=== PATIENT | female | born 1995 | race American Indian/Alaskan Native ===

== ENCOUNTER 2019-11-18 19:30 | Emergency (ER) | payer SELFPAY ==
[2019-11-18 21:39] VITALS: BP 104/53
[2019-11-18] MEDS ORDERED: METOCLOPRAMIDE 10 MG TAB PO ONE (22:11)
[2019-11-18] MEDS ORDERED: BUTALB/ACETAMINOPHEN/CAFFEINE TAB PO ONE (22:11)
[2019-11-18] MEDS ORDERED: KETOROLAC 30 MG/1 ML INJ IM ONE (22:11)
--- NOTE | 2019-11-18 22:13 | Emergency Department Report ---
ED Headache HPI - General Chief Complaint: Headache Stated Complaint: SEVERE MIGRAINES W/BLACKOUTS Source: patient Exam Limitations: no limitations - History of Present Illness Initial Comments: Patient is a 24-year-old -Stateless female with a history of migraine headaches, asthma and extensive chronic sinusitis presents to the ED with acute onset persistent severe right frontal and temporal headache with intermittent blurry vision and nausea for the last 2 months, worse in the last 1 week. P atient also states that she has had 2 episodes of syncope last of which was 5 days ago. Patient states that she has been taking decongestants and other pain medications with no relief. Patient states that the only medicine that previously helped her was Excedrin migraine headaches medicine but she was warned by her mother to avoid that medication. Patient states that in the last 2 days, the headache has been persistent, severe with worsening blurriness and that the pain is mainly more severe on the right retro-orbital area and right temporal area. Patient denies vomiting, fever, chills, chest pain, shortness of breath, palpitations, fever, chills, cough, nasal and sinus congestion, sore throat, loss of consciousness or traumatic injury and fall. Timing/Duration: constant, waxing and waning, other (2 months duration) Quality: severe, constant, pressure, sharp, throbbing Head Injury Location: temporal (right), other (right retro-orbital) Recent Head Trauma: chronic headaches Modifying Factors: improves with: medication Associated Symptoms: denies symptoms, facial pain, nausea/vomiting, vision changes, other (Syncope). denies: confusion, fatigue, fever/chills, flushing, loss of consciousness, nasal congestion, nasal drainage, numbness in legs/feet, seizures, sinus infection, stiff neck Allergies/Adverse Reactions: Allergies No Known Allergies Allergy (Unverified 11/18/19 19:36) Home Medications: Ambulatory Orders Amoxicillin/Potassium Clav [Augmentin 875-125 Tablet] 1 each PO Q12H #20 tablet 11/19/19 Butalb/Acetamin/Caff 50-325-40 [Fioricet 50-325-40] 1 - 2 tab PO Q6HR PRN #15 tab 11/19/19 Ketorolac [Toradol] 10 mg PO Q8H PRN #20 tablet 11/19/19 Ondansetron [Zofran Odt] 4 mg PO Q6HR PRN #20 tab.rapdis 11/19/19 predniSONE [Deltasone] 40 mg PO QDAY #10 tab 11/19/19 ED Review of Systems ROS: Stated complaint: SEVERE MIGRAINES W/BLACKOUTS Other details as noted in HPI Constitutional: denies: chills, fever Eyes: other (Blurry vision). denies: eye pain, eye discharge, vision change ENT: other (Frontal sinus pressure and headache). denies: ear pain, throat pain Respiratory: denies: cough, shortness of breath, wheezing Cardiovascular: syncope. denies: chest pain, palpitations Endocrine: no symptoms reported Gastrointestinal: nausea. denies: abdominal pain, diarrhea Genitourinary: denies: urgency, dysuria, discharge Musculoskeletal: denies: back pain, joint swelling, arthralgia Skin: denies: rash, lesions Neurological: other (Lightheadedness). denies: headache, weakness, paresthesias Psychiatric: denies: anxiety, depression Hematological/Lymphatic: denies: easy bleeding, easy bruising ED Past Medical Hx - Past Medical History Previous Medical History?: Yes Hx Headaches / Migraines: Yes Hx Asthma: Yes - Surgical History Past Surgical History?: No - Social History Smoking Status: Never Smoker Substance Use Type: None - Medications Home Medications: Home Medications Medication Instructions Recorded Confirmed Last Taken Type Amoxicillin/Potassium Clav 1 each PO Q12H #20 tablet 11/19/19 Unknown Rx [Augmentin 875-125 Tablet] Butalb/Acetamin/Caff 50-325-40 1 - 2 tab PO Q6HR PRN #15 tab 11/19/19 Unknown Rx [Fioricet 50-325-40] Ketorolac [Toradol] 10 mg PO Q8H PRN #20 tablet 11/19/19 Unknown Rx Ondansetron [Zofran Odt] 4 mg PO Q6HR PRN #20 tab.rapdis 11/19/19 Unknown Rx predniSONE [Deltasone] 40 mg PO QDAY #10 tab 11/19/19 Unknown Rx ED Physical Exam - General Limitations: No Limitations General appearance: alert, in no apparent distress - Head Head exam: Present: atraumatic, normocephalic, normal inspection - Eye Eye exam: Present: normal appearance, PERRL, EOMI Pupils: Present: normal accommodation - ENT ENT exam: Present: normal orophraynx, mucous membranes moist, TM's normal bilaterally, normal external ear exam, other (Palpable frontal and maxillary sinus tenderness; grossly congested nasal passages) - Neck Neck exam: Present: normal inspection, full ROM - Respiratory Respiratory exam: Present: normal lung sounds bilaterally. Absent: respiratory distress, wheezes, rales, chest wall tenderness, accessory muscle use, decreased breath sounds, prolonged expiratory - Cardiovascular Cardiovascular Exam: Present: regular rate, normal rhythm, normal heart sounds. Absent: systolic murmur, diastolic murmur, rubs, gallop - GI/Abdominal GI/Abdominal exam: Present: soft, normal bowel sounds. Absent: tenderness, guarding, rebound, hyperactive bowel sounds, hypoactive bowel sounds - Extremities Exam Extremities exam: Present: normal inspection, full ROM, normal capillary refill - Back Exam Back exam: Present: normal inspection, full ROM. Absent: tenderness, CVA tenderness (R), CVA tenderness (L), muscle spasm, paraspinal tenderness, vertebral tenderness - Neurological Exam Neurological exam: Present: alert, oriented X3, CN II-XII intact, normal gait, reflexes normal - Psychiatric Psychiatric exam: Present: normal affect, normal mood - Skin Skin exam: Present: warm, dry, intact, normal color. Absent: rash ED Course Vital Signs 11/18/19 19:37 Temperature 97.6 F Pulse Rate 84 Respiratory 17 Rate Blood Pressure 104/53 O2 Sat by Pulse 99 Oximetry ED Medical Decision Making - Lab Data Result diagrams: 11/18/19 22:38 11/18/19 22:38 - Radiology Data Radiology results: report reviewed, image reviewed Findings [facility] [address] [place] [address] Cat Scan Report Signed Patient: GEN MARCIAL#: [id number] : 1995 Acct:[id number] Age/Sex: 24 / F ADM Date: 11/18/19 Loc: ED Attending Dr: Ordering Physician: GREG WADE Date of Service: 11/18/19 Procedure(s): CT head/brain wo con Accession Number(s): [id number] cc: GREG WADE CT HEAD WITHOUT CONTRAST HISTORY: Severe headache x 1 month, syncopal episodes, photosensitivity COMPARISON: None TECHNIQUE: CT imaging of the head was performed in the axial, sagittal, and coronal projections and bone algorithm in axial projection in the soft tissue algorithm. All CT scans at this location are performed using CT dose reduction for ALARA by means of automated exposure control. CONTRAST: None. FINDINGS: Cerebral and Cerebellar Hemispheres: No evidence of mass or mass effect. No midline shift. No acute hemorrhage. No acute cortical infarction. No extra-axial fluid collection. Ventricles: Normal in size and configuration for age. Osseous Structures: No significant abnormality. Visualized Paranasal Sinuses: However, attention is treated to the paranasal sinuses which demonstrated extensive mucosal thickening involving the frontal sinuses and ethmoid sinuses, right sphenoid and maxillary sinuses with varying degrees of increased density on the right. Evidence of previous surgery right maxillary sinus Additional Findings: None IMPRESSION: 1. Extensive inflammatory changes-polyposis of the paranasal sinuses as noted NOTE: Acute infarct may not be visible by noncontrast CT. Signer Name: Gene López MD Signed: 11/18/2019 11:03 PM Workstation Name: [id number] Transcribed By: WG Dictated By: Gene López MD Electronically Authenticated By: Gene López MD Signed Date/Time: 11/18/192302 DD/ 48 TD/TT: - Medical Decision Making This is a 24-year-old -Stateless female with a history of migraine he adaches, asthma and extensive chronic sinusitis presents to the ED with acute onset persistent severe right frontal and temporal headache with intermittent blurry vision and nausea for the last 2 months, worse in the last 1 week. Patient also states that she has had 2 episodes of syncope last of which was 5 days ago. Patient states that she has been taking decongestants and other pain medications with no relief. Patient states that the only medicine that previously helped her was Excedrin migraine headaches medicine but she was warned by her mother to avoid that medication. Patient states that in the last 2 days, the headache has been persistent, severe with worsening blurriness and that the pain is mainly more severe on the right retro-orbital area and right temporal area. In the ED, patient is alert and oriented x3 and is not in distress but appears to be in significant pain. Patient was treated for pain in the ED and also given antiemetics. Lab test results were reviewed and are all nonactionable. Chest x-ray shows no acute cardiopulmonary abnormalities or pneumonitis. EKG shows normal sinus rhythm and no ST or T wave abnormalities. Head CT scan without contrast showed the paranasal sinuses which demonstrated extensive mucosal thickening involving the frontal sinuses and ethmoid sinuses, right sphenoid and maxillary sinuses with varying degrees of increased density on the right. There is evidence of previous surgery right maxillary sinus. Patient was also treated in the ED with Rocephin 1 g IV and Decadron 10 mg IV. On reevaluation, patient felt better and was discharged home on pain medications and oral antibiotics and was advised to follow-up with her primary care physician in 5 to 7 days for reevaluation. Patient was also advised to return to the ED immediately if symptoms get worse. - Differential Diagnosis Migraine; Sinus headache; sinusitis; Cluster headache; Vertigo Critical care attestation.: If time is entered above; I have spent that time in minutes in the direct care of this critically ill patient, excluding procedure time. ED Disposition Clinical Impression: Chronic frontoethmoidal sinusitis, Sinus headache Headache, chronic migraine without aura Qualifiers: Status migrainosus presence: without status migrainosus Intractability: not intractable Qualified Code(s): G43.709 - Chronic migraine without aura, not intractable, without status migrainosus Disposition: DC-01 TO HOME OR SELFCARE Is pt being admited?: No Does the pt Need Aspirin: No Condition: Stable Instructions: Acute Bacterial Rhinosinusitis (ED), Migraine Headache (ED) Additional Instructions: Take medication with food, drink plenty of fluids and follow-up with your primary care physician in 5 to 7 days for reevaluation. Return to the ED immediately if symptoms get worse. Prescriptions: Amoxicillin/Potassium Clav [Augmentin 875-125 Tablet] 1 each PO Q12H #20 tablet predniSONE [Deltasone] 40 mg PO QDAY #10 tab Butalb/Acetamin/Caff 50-325-40 [Fioricet 50-325-40] 1 - 2 tab PO Q6HR PRN #15 tab PRN Reason: Headache Ketorolac [Toradol] 10 mg PO Q8H PRN #20 tablet PRN Reason: Pain Ondansetron [Zofran Odt] 4 mg PO Q6HR PRN #20 tab.rapdis PRN Reason: Nausea Referrals: LANIE REID MD [Staff Physician] - 3-5 Days GALA DENNIS MD [Staff Physician] - 3-5 Days Time of Disposition: 00:41 Print Language: FRISIAN
[2019-11-18 23:03] LABS: Hematocrit 35.4 % (30.3-42.9); Mean Corpuscular HGB Conc 34 % (30-34); Mean Corpuscular Volume 88 fl (79-97); Platelet Count 253 K/mm3 (140-440); Red Blood Count 4.03 M/mm3 (3.65-5.03); Red Cell Distribution Width 13.1 % (13.2-15.2)
--- NOTE | 2019-11-18 23:07 | Cat Scan Report ---
CT HEAD WITHOUT CONTRAST HISTORY: Severe headache x 1 month, syncopal episodes, photosensitivity COMPARISON: None TECHNIQUE: CT imaging of the head was performed in the axial, sagittal, and coronal projections and bone algori thm in axial projection in the soft tissue algorithm. All CT scans at this location are performed using CT dose reduction for ALARA by means of automated e xposure control. CONTRAST: None. FINDINGS: Cerebral and Cerebellar Hemispheres: No evidence of mass or mass effect. No midline shift. No acute hemorrhage. No acute cortical infarction. No extra-axial fluid collection. Ventricles: Normal in size and configuration for age. Osseous Structures: No significant abnormality. Visualized Paranasal Sinuses: However, attention is treated to the paranasal sinuses which demonstrat ed extensive mucosal thickening involving the frontal sinuses and ethmoid sinuses, right sphenoid and maxillary sinuses with varying degrees of increased density on the right. Evidence of previous surge ry right maxillary sinus Additional Findings: None IMPRESSION: 1. Extensive inflammatory changes-polyposis of the paranasal sinuses as noted NOTE: Acute infarct may not be visible by noncontrast CT. Signer Name: Gene López MD Signed: 11/18/2019 11:03 PM Workstation Name: [id number]
[2019-11-18 23:31] LABS: Alanine Aminotransferase 6 units/L (7-56); Albumin 4.3 g/dL (3.9-5); Blood Urea Nitrogen 6 mg/dL (7-17); Calcium 9.3 mg/dL (8.4-10.2); Hemolysis Index 7
[2019-11-18 23:32] LABS: BUN/Creatinine Ratio 10
[2019-11-18] MEDS ORDERED: cefTRIAXone/NS 1 GM/50 ML 1 GM/50 ML BAG IV ONE (23:53)
[2019-11-18] MEDS ORDERED: dexAMETHasone 20 MG/5 ML VIAL IV ONE (23:54)
[2019-11-19 00:25] LABS: Basophils % (Manual) 0 % (0.0-1.8); Total Cells Counted 100
[2019-11-19 00:26] LABS: Platelet Estimate Consistent w Auto
--- NOTE | 2019-11-19 00:40 | XRay Report ---
CHEST 1 VIEW INDICATION: Syncope COMPARISON: None FINDINGS: SUPPORT DEVICES: None. HEART / MEDIASTINUM: No significant abnormality. LUNGS / PLEURA: No significant pulmonary or pleural abnormality. No pneumothorax. ADDITIONAL FINDINGS: IMPRESSION: 1. No acute cardiopulmonary disease Signer Name: Gene López MD Signed: 11/19/2019 12:36 AM Workstation Name: [id number]
== END 2019-11-19 01:05 | disposition home or self-care (01) ==
LOC: ED 19:30
DX: J32.2 Chronic ethmoidal sinusitis (principal); G43.709 Chronic migraine without aura, not intractable, without status migrainosus; J45.909 Unspecified asthma, uncomplicated; Z79.899 Other long term (current) drug therapy
CPT/HCPCS: 36415; 70450; 71045; 80053; 84484; 84703; 85007; 85025; 93005; 96365; 96375; 99284; J0696; J1100; J1885